=== PATIENT | female | born 1945 | race Caucasian/White ===

== ENCOUNTER 2023-12-30 18:51 | Inpatient (IN) | payer MEDICARE, OTHER ==
[~2023-12-30] VITALS: Ht 149.9 cm; Wt 59.0 kg
[~2023-12-30 18:51] MED LIST: DULA0.75 SQ
[2023-12-30 21:08] LABS: APPEARANCE,URINE TURBID (CLEAR); BILIRUBIN,URINE NEGATIVE (NEGATIVE); BLOOD, URINE TRACE-INTA Ery/uL (NEGATIVE); COLOR,URINE YELLOW (YELLOW); KETONES,URINE NEGATIVE (NEGATIVE); LEUKOCYTE ESTERASE ,URINE 2+ (NEGATIVE); NITRITE, URINE NEGATIVE (NEGATIVE); PROTEIN,URINE 2+ mg/dl (NEGATIVE); UGLUCOSE NEGATIVE (NEGATIVE); UROBILINOGEN,URINE 0.2 EU/dL (0.2)
[2023-12-30 21:11] LABS: BASOPHILS % (AUTO) 0.6 % (0.0-2.0); EOSINOPHILS # (AUTO) 0.4 K/uL (0.0-0.7); EOSINOPHILS % (AUTO) 5.6 % (0.0-6.0); HEMATOCRIT 29 % (33-45); HEMOGLOBIN 9.5 g/dL (11.5-14.8); LYMPHOCYTES % (AUTO) 30.2 % (20.0-44.0); MEAN CORPUSCULAR HEMOGLOBIN 29 PG (26.0-33.0); MEAN CORPUSCULAR HGB CONC 33 g/dl (31.0-36.0); MEAN CORPUSCULAR VOLUME 88 fL (82-100); MONOCYTES # (AUTO) 0.5 K/uL (0.1-1.30); MONOCYTES % (AUTO) 7.6 % (2.0-12.0); NEUTROPHILS # (AUTO) 3.8 K/uL (1.8-8.9); PLATELET COUNT (AUTO) 146 K/uL (150-450); RED BLOOD CELL COUNT(AUTO) 3.31 MIL/uL (4.0-5.2); WHITE BLOOD COUNT (AUTO) 6.8 K/uL (4.3-11.0)
[2023-12-30 21:21] LABS: ADD URINE CULTURE YES; BACTERIA,URINE Moderate /HPF (None Seen); WBC,URINE 51-80 /HPF (0-3)
[2023-12-30 21:41] LABS: AMPHETAMINE, URINE NEGATIVE (NEGATIVE); CANNABINOID, URINE NEGATIVE (NEGATIVE); COCCAINE, URINE NEGATIVE (NEGATIVE); OPIATE, URINE NEGATIVE (NEGATIVE); PHENCYCLIDINE SCREEN,URINE NEGATIVE (NEGATIVE)
[2023-12-30 21:47] LABS: BARBITURATE, URINE POSITIVE (NEGATIVE)
[2023-12-30 21:56] LABS: ALANINE AMINOTRANSFERASE 19 U/L (12-78); ALBUMIN 2.4 g/dL (3.4-5.0); ALKALINE PHOSPHATASE 86 U/L (46-116); ASPARTATE AMINOTRANSFERASE 15 U/L (15-37); BILIRUBIN,TOTAL 0.2 mg/dL (0.2-1.0); CALCIUM, SERUM 9.1 mg/dL (8.5-10.1); CHLORIDE 105 mmol/L (98-107); CREATININE 1.3 mg/dL (0.6-1.3); GLUCOSE 158 mg/dL (74-106); POTASSIUM 4.9 mmol/L (3.5-5.1); SODIUM SERUM 139 mmol/L (136-145); TOTAL PROTEIN, SERUM 6.6 g/dL (6.4-8.2); UREA NITROGEN, BLOOD 31 mg/dL (7-18)
[2023-12-30 22:03] LABS: ACETAMINOPHEN <10 ug/ml (10-30); ALCOHOL, BLOOD < 3 mg/dL (0-10)
[2023-12-30] MEDS ORDERED: LEVOFLOXACIN (250MG) 250 MG TABLET ONE (22:07)
[2023-12-30] MEDS ORDERED: SITA100T PO (22:11)
[2023-12-30] MEDS ORDERED: LEVA15HF4 INH (22:11)
[2023-12-30] MEDS ORDERED: CRAN425C6 PO (22:11)
[2023-12-30] MEDS ORDERED: DILT180C93 PO (22:11)
[2023-12-30] MEDS ORDERED: METO25TA4 PO (22:11)
[2023-12-30] MEDS ORDERED: FURO-145 PO (22:11)
[2023-12-30] MEDS ORDERED: METF-442 PO (22:11)
[2023-12-30] MEDS ORDERED: ROSU20TA2 PO (22:11)
[2023-12-30] MEDS ORDERED: POTA-10 PO (22:11)
[2023-12-30] MEDS ORDERED: OMEP20TA20 PO (22:11)
[2023-12-30] MEDS ORDERED: ROFL500T PO (22:11)
[2023-12-30] MEDS ORDERED: ASPI-1169 PO (22:11)
[2023-12-30] MEDS ORDERED: FOLI0.8T23 PO (22:11)
[2023-12-30] MEDS ORDERED: INSU100V7 SQ (22:11)
[2023-12-30] MEDS ORDERED: TIOT18CA3 INH (22:11)
[2023-12-30] MEDS ORDERED: TRAZ-182 PO (22:11)
[2023-12-30] MEDS ORDERED: PRIM1POW PO (22:11)
[2023-12-30] MEDS ORDERED: SENN1TAB6 PO (22:11)
[2023-12-30] MEDS ORDERED: DIVA500T54 PO (22:11)
[2023-12-30] MEDS ORDERED: LOSA25TA27 PO (22:11)
[2023-12-30] MEDS ORDERED: ALLO100T PO (22:11)
[2023-12-30] MEDS ORDERED: BUPR100T6 PO (22:11)
[2023-12-30] MEDS ORDERED: IPRA3AMP23 IH (22:11)
[2023-12-30] MEDS: LEVOFLOXACIN (250MG) 250 MG TABLET PO ONE (22:16)
[2023-12-30 22:21] LABS: BENZODIAZEPINE, URINE NEGATIVE (NEGATIVE)
[2023-12-30] MEDS ORDERED: *INSULIN REGULAR(HUMULIN R)HUM 100 UNIT/ML VIAL SQ PRN (22:30)
[2023-12-30] MEDS ORDERED: LEVOFLOXACIN (250MG) 250 MG TABLET PO SCH (22:30)
[2023-12-30] MEDS ORDERED: DEXTROSE 50%-WATER 50 ML DISP.SYRIN IV PRN (22:30)
[2023-12-30 22:48] LABS: CARBON DIOXIDE 23 mmol/L (21-32)
[2023-12-30] MEDS: TRAZODONE 50 MG TABLET PO ONE (23:00)
[2023-12-30] MEDS ORDERED: buPROPion SR 150 MG TABLET.ER PO SCH (23:00)
[2023-12-31] MEDS ORDERED: ALBUTEROL FS 2.5 MG/3 ML VIAL.NEB NEB PRN (02:00)
[2023-12-31] MEDS: IPRATROPIUM NEB FS 0.5 MG/2.5 ML AMPUL.NEB HHN SCH (02:00)
[2023-12-31] MEDS ORDERED: MAGNESIUM HYDROXIDE 30 ML UDC PO PRN (02:30)
[2023-12-31] MEDS ORDERED: TEMAZEPAM 7.5 MG CAPSULE PO PRN (02:30)
[2023-12-31] MEDS ORDERED: MAG HYDROX/AL HYDROX/SIMETH 30 ML UDC PO PRN (02:30)
[2023-12-31] MEDS ORDERED: LORAZEPAM 0.5 MG TABLET PO PRN (02:30)
[2023-12-31] MEDS ORDERED: ACETAMINOPHEN 325 MG TABLET PO PRN (02:30)
[2023-12-31 02:39] VITALS: BP 119/59; TEMP 98.2
[2023-12-31] MEDS ORDERED: TRAZODONE 50 MG TABLET PO SCH ×2 (02:46→22:00)
[2023-12-31] MEDS: LEVOFLOXACIN (250MG) 250 MG TABLET PO SCH (03:19)
[2023-12-31] MEDS: TRAZODONE 50 MG TABLET PO ONE (03:19)
[2023-12-31] MEDS: BLOOD SUGAR DIAGNOSTIC 1 EACH STRIP IN ONE (03:21)
[2023-12-31] MEDS: BLOOD SUGAR DIAGNOSTIC 1 EACH STRIP VI SCH (07:26)
[2023-12-31] MEDS: INSULIN REGULAR, HUMAN 100 UNIT/ML 3 ML VIAL SQ PRN (07:31)
[2023-12-31 08:00] VITALS: BP 107/54; TEMP 97.9; O2SAT 98
[2023-12-31] MEDS: PANTOPRAZOLE 40 MG TABLET.DR PO SCH (08:22)
[2023-12-31] MEDS ORDERED: PRIM50TA27 PO (08:45)
[2023-12-31] MEDS ORDERED: INSU100C13 SQ (08:45)
[2023-12-31] MEDS ORDERED: MIRABEGRON PO (08:45)
[2023-12-31] MEDS ORDERED: ACET325T53 PO (08:45)
[2023-12-31] MEDS: LOSARTAN POTASSIUM 25 MG TABLET PO SCH (09:00)
[2023-12-31] MEDS ORDERED: ROFLUMILAST PO SCH (09:00)
[2023-12-31] MEDS ORDERED: Medication Not On Formulary EA (Cranberry Extract (Cranberry) 425 MG) PO SCH (09:00)
[2023-12-31] MEDS: DILTIAZEM HCL CD 180 MG PO SCH (09:00)
[2023-12-31] MEDS: METOPROLOL SUCCINATE 25 MG TAB.SR.24H PO SCH (09:00)
[2023-12-31] MEDS: ASPIRIN 81 MG TAB.CHEW PO SCH (09:05)
[2023-12-31] MEDS: FUROSEMIDE 20 MG TABLET PO SCH (09:07)
[2023-12-31] MEDS: buPROPion SR 150 MG TABLET.ER PO SCH (09:09)
[2023-12-31] MEDS: DIVALPROEX SODIUM 500 MG TABLET.DR PO SCH (09:10)
[2023-12-31] MEDS: SENNOSIDES/DOCUSATE SODIUM 1 TAB TABLET PO SCH (09:10)
[2023-12-31] MEDS: LINAGLIPTIN 5 MG TABLET PO SCH (09:11)
[2023-12-31] MEDS: METFORMIN 500 MG TABLET PO SCH (09:11)
[2023-12-31] MEDS: VIT B CMPLX 3/FA/VIT C/BIOTIN 1 TAB TABLET PO SCH (09:11)
[2023-12-31] MEDS: ATORVASTATIN 40 MG TABLET PO SCH (09:11)
[2023-12-31] MEDS: ALLOPURINOL 100 MG TABLET PO SCH (09:11)
[2023-12-31] MEDS: Z GUARD REMEDY 4 OZ OINT TP SCH (09:12)
[2023-12-31 09:29] VITALS: O2SAT 96
[2023-12-31] MEDS: ALBUTEROL FS 2.5 MG/3 ML VIAL.NEB NEB SCH (09:29)
[2023-12-31] MEDS: IPRATROPIUM NEB FS 0.5 MG/2.5 ML AMPUL.NEB NEB SCH (09:29)
[2023-12-31 09:40] VITALS: O2SAT 96
[2023-12-31 16:00] VITALS: BP 113/57; TEMP 98; O2SAT 98
[2023-12-31 16:07] LABS: CREATININE 1.3 mg/dL (0.6-1.3)
[2023-12-31 20:00] VITALS: BP 136/97; TEMP 98.4; O2SAT 95
[2023-12-31] MEDS: TRAZODONE 50 MG TABLET PO SCH (21:22)
[2024-01-01 08:00] VITALS: BP 131/52; TEMP 98.1; O2SAT 96
[2024-01-01 08:36] LABS: CHOLESTEROL 131 mg/dL (<200); HDL CHOLESTEROL 58 mg/dL (40-60); LDL 50 mg/dL (0-99); TRIGLYCERIDES 84 mg/dL (30-150)
[2024-01-01] MEDS ORDERED: ALBUTEROL FS 2.5 MG/3 ML VIAL.NEB NEB PRN (09:30)
[2024-01-01] MEDS ORDERED: IPRATROPIUM NEB FS 0.5 MG/2.5 ML AMPUL.NEB HHN PRN (09:30)
[2024-01-01] MEDS: DIVALPROEX SODIUM 250 MG TABLET.DR PO SCH (09:33)
[2024-01-01 16:00] VITALS: BP 117/71; TEMP 98.1; O2SAT 98
[2024-01-01 20:00] VITALS: BP 131/69; TEMP 98.1; O2SAT 98
[2024-01-02 08:00] VITALS: BP 122/67; TEMP 97.7; O2SAT 94
[2024-01-02 16:00] VITALS: BP 101/50; TEMP 98.6; O2SAT 98
[2024-01-02 20:00] VITALS: BP 129/69; TEMP 98.3; O2SAT 97
[2024-01-03 08:00] VITALS: BP 112/57; TEMP 97.8; O2SAT 95
[2024-01-03 16:00] VITALS: BP 126/70; TEMP 97.9; O2SAT 98
[2024-01-03 20:29] VITALS: BP 127/65; TEMP 97.8; O2SAT 95
[2024-01-04 08:00] VITALS: BP 111/54; TEMP 97.7; O2SAT 95
[2024-01-04 16:00] VITALS: BP 141/64; TEMP 97.7; O2SAT 100
[2024-01-04 20:47] VITALS: BP 95/66; TEMP 97.9; O2SAT 98
[2024-01-05 08:00] VITALS: BP 126/65; TEMP 97.7; O2SAT 100
[2024-01-05 16:00] VITALS: BP 129/52; TEMP 98.6; O2SAT 97
[2024-01-05 21:00] VITALS: BP 110/75; TEMP 98.6; O2SAT 97
[2024-01-05] MEDS: buPROPion SR 150 MG TABLET.ER PO SCH (21:00)
[2024-01-06 08:00] VITALS: BP 125/66; TEMP 98.1; O2SAT 97
[2024-01-06 16:00] VITALS: BP 110/57; TEMP 98.7; O2SAT 99
[2024-01-06 21:15] VITALS: BP 107/54; TEMP 98.1; O2SAT 94
[2024-01-07 08:00] VITALS: BP 113/58; TEMP 98.7; O2SAT 100
[2024-01-07] MEDS: buPROPion SR 150 MG TABLET.ER PO SCH (10:49)
[2024-01-07 16:00] VITALS: BP 111/57; TEMP 98; O2SAT 98
[2024-01-07 21:19] VITALS: BP 115/56; TEMP 97.8; O2SAT 97
[2024-01-08 08:00] VITALS: BP 127/60; TEMP 98.2; O2SAT 96
[2024-01-08 16:00] VITALS: BP 130/69; TEMP 97.6; O2SAT 97
[2024-01-08 20:00] VITALS: BP 142/69; TEMP 98.1; O2SAT 93
[2024-01-09 08:00] VITALS: BP 105/50; TEMP 97.6; O2SAT 98
[2024-01-09 08:45] VITALS: O2SAT 91
[2024-01-09 16:00] VITALS: BP 148/79; TEMP 98; O2SAT 96
[2024-01-09 20:00] VITALS: BP 114/58; TEMP 97.7; O2SAT 97
[2024-01-10 08:00] VITALS: BP 139/83; TEMP 97.7; O2SAT 94
[2024-01-10 16:00] VITALS: BP 121/69; TEMP 98.6; O2SAT 99
[2024-01-10 20:00] VITALS: BP 131/73; TEMP 98.4; O2SAT 95
[2024-01-11 08:00] VITALS: BP 153/66; TEMP 97.9; O2SAT 96
[2024-01-11 13:45] VITALS: O2SAT 95
[2024-01-11 16:00] VITALS: BP 110/55; TEMP 98.1; O2SAT 95
[2024-01-11 20:23] VITALS: BP 123/60; TEMP 98.1; O2SAT 94
[2024-01-12 08:00] VITALS: BP 121/72; TEMP 98.1; O2SAT 98
[2024-01-12 16:00] VITALS: BP 100/74; TEMP 98.6; O2SAT 97
[2024-01-12 20:58] VITALS: BP 140/64; TEMP 98.2; O2SAT 96
[2024-01-13 08:00] VITALS: BP 150/64; TEMP 98; O2SAT 96
[2024-01-13 08:45] VITALS: BP 150/64
== END 2024-01-13 13:42 | DRG 885 ==
LOC: ER 18:57 → GPS 12-31 00:11
PROVIDERS: ADMIT Psychiatry & Neurology Psychiatry; ATTEND Nurse Practitioner Acute Care
DX: F33.2 Major depressive disorder, recurrent severe without psychotic features (principal); J44.89 Other specified chronic obstructive pulmonary disease; E11.65 Type 2 diabetes mellitus with hyperglycemia; R45.851 Suicidal ideations; E44.0 Moderate protein-calorie malnutrition; N39.0 Urinary tract infection, site not specified; E88.09 Other disorders of plasma-protein metabolism, not elsewhere classified; Z68.26 Body mass index [BMI] 26.0-26.9, adult; B96.89 Other specified bacterial agents as the cause of diseases classified elsewhere; M10.9 Gout, unspecified; E78.5 Hyperlipidemia, unspecified; G40.909 Epilepsy, unspecified, not intractable, without status epilepticus; R79.89 Other specified abnormal findings of blood chemistry; M15.9 Polyosteoarthritis, unspecified; I10 Essential (primary) hypertension; R41.9 Unspecified symptoms and signs involving cognitive functions and awareness; F41.9 Anxiety disorder, unspecified; I25.10 Atherosclerotic heart disease of native coronary artery without angina pectoris; K21.9 Gastro-esophageal reflux disease without esophagitis
CPT/HCPCS: 36415; 80048-TC; 80061-TC; 80076-TC; 80164-TC; 81001; 82565-TC; 82962-TC; 85025-TC; 87081-TC; 87086-TC; 93970-TC; 94799-TC; 97110-TC; 97116-TC; 97530-TC; G0480; J1815